=== PATIENT | male | born 1995 | race African-American/Black ===

== ENCOUNTER 2021-11-05 22:07 | Emergency (ER) | payer SELFPAY ==
[~2021-11-05] VITALS: Ht 182.9 cm; Wt 68.0 kg
[2021-11-05 22:35] VITALS: BP 117/69
[2021-11-05] MEDS ORDERED: IBUPROFEN 800MG TABLET PO ONE (23:30)
[2021-11-06] MEDS ORDERED: IBUP-2030 MT (01:39)
== END 2021-11-06 02:05 | disposition home or self-care (01) ==
LOC: ER 22:07
DX: S60.221A Contusion of right hand, initial encounter (principal); W22.8XXA Striking against or struck by other objects, initial encounter; Y93.C2 Activity, hand held interactive electronic device; Y92.018 Other place in single-family (private) house as the place of occurrence of the external cause
CPT/HCPCS: 73130; 99283

== ENCOUNTER 2023-12-30 00:53 | Emergency (ER) | payer SELFPAY ==
[~2023-12-30] VITALS: Ht 180.3 cm; Wt 65.0 kg
[~2023-12-30 00:53] MED LIST: IBUP-2030 MT
[2023-12-30 01:23] VITALS: BP 110/82; PULSE 80; RESP 16; TEMP 97.8; O2SAT 98
[2023-12-30] MEDS ORDERED: OCUFLX RIGHTEYE (03:55)
== END 2023-12-30 04:41 | disposition home or self-care (01) ==
LOC: ER 00:53
DX: H10.89 Other conjunctivitis (principal)
CPT/HCPCS: 99283

== ENCOUNTER 2024-01-16 21:00 | Emergency (ER) | payer SELFPAY ==
[~2024-01-16] VITALS: Ht 180.3 cm; Wt 62.0 kg
[~2024-01-16 21:00] MED LIST changes: +OCUFLX RIGHTEYE
[2024-01-16 21:25] VITALS: BP 123/66; PULSE 97; RESP 18; TEMP 98.4; O2SAT 100
[2024-01-16] MEDS ORDERED: TETRACAINE 0.5% OPHTH DROPS 4ML BOTHEYE ONE (22:45)
[2024-01-16] MEDS ORDERED: FLUORESCEIN SODIUM 1MG/STRIP BOTHEYE ONE (22:45)
[2024-01-17] MEDS ORDERED: FLUORESCEIN SODIUM 1MG/STRIP BOTHEYE NR (01:15)
[2024-01-17] MEDS ORDERED: TETRACAINE 0.5% OPHTH DROPS 4ML BOTHEYE NR (01:15)
[2024-01-17] MEDS ORDERED: OCUFLX LEFTEYE (01:23)
[2024-01-17] MEDS ORDERED: KEPP500 MT (01:23)
[2024-01-17] MEDS ORDERED: LEVETIRACETAM 500MG/5ML CUP PO ONE (01:30)
== END 2024-01-17 02:09 | disposition home or self-care (01) ==
LOC: ER 21:00
DX: H10.9 Unspecified conjunctivitis (principal); G40.909 Epilepsy, unspecified, not intractable, without status epilepticus; Z76.0 Encounter for issue of repeat prescription
CPT/HCPCS: 99283

== ENCOUNTER 2025-02-18 07:47 | Emergency (ER) | payer MEDICAID ==
[~2025-02-18] VITALS: Ht 180.3 cm; Wt 71.0 kg
[~2025-02-18 07:47] MED LIST changes: +KEPP500 MT; +OCUFLX LEFTEYE
[2025-02-18 08:00] VITALS: O2SAT 97
[2025-02-18 08:29] LABS: BASOPHILS % 0.4 % (0.0-2.0); EOSINOPHILS % 0.9 % (0.0-5.0); HEMATOCRIT. 39.4 % (42.0-52.0); HEMOGLOBIN. 12.8 g/dL (14.0-18.0); LYMPHOCYTES % 26.1 % (20.0-50.0); MEAN PLATELET VOLUME 8.1 fl (7.4-10.4); MONOCYTES % 9.5 % (2.0-8.0); NEUTROPHILS % 63.1 % (40.0-76.0); PLATELET 192 x1000/uL (130-400); RED BLOOD CELL COUNT 5.01 mill/uL (4.7-6.1); RED CELL DISTRIBUTION WIDTH 14.9 % (11.6-14.6)
[2025-02-18] MEDS ORDERED: LEVETIRACETAM 0 MG in SODIUM CHLORIDE 0.9% 100 ML IV ONE (08:30)
[2025-02-18] MEDS ORDERED: ACETAMINOPHEN 325MG TABLET PO ONE (08:30)
[2025-02-18 08:42] LABS: CREATININE 1.0 mg/dL (0.6-1.3); UREA NITROGEN BLOOD 11 mg/dL (9-23)
[2025-02-18 08:43] LABS: ETHANOL BLOOD < 10 mg/dL (<10)
[2025-02-18] MEDS: LEVETIRACETAM 1000MG PREMIX 100 ML IV NR (09:01)
[2025-02-18] MEDS: ACETAMINOPHEN 325MG TABLET PO NR (09:01)
[2025-02-18] MEDS ORDERED: KEPP500 PO (10:03)
[2025-02-18 10:54] VITALS: BP 135/90; PULSE 87; RESP 20; TEMP 36.9; O2SAT 97
== END 2025-02-18 10:59 | disposition home or self-care (01) ==
LOC: ER 07:47
DX: G40.909 Epilepsy, unspecified, not intractable, without status epilepticus (principal); Z79.899 Other long term (current) drug therapy; Z88.0 Allergy status to penicillin
CPT/HCPCS: 80048; 80320; 85025; 36415; 70450; 93005; 96365; 99285; J1953; G0480

== ENCOUNTER 2025-03-11 18:42 | Emergency (ER) | payer MEDICAID ==
[~2025-03-11] VITALS: Ht 180.3 cm; Wt 66.0 kg
[~2025-03-11 18:42] MED LIST changes: +KEPP500 PO
[2025-03-11 18:50] VITALS: O2SAT 100
[2025-03-11 19:36] LABS: BASOPHILS % 0.4 % (0.0-2.0); EOSINOPHILS % 1.2 % (0.0-5.0); HEMATOCRIT. 36.2 % (42.0-52.0); HEMOGLOBIN. 11.7 g/dL (14.0-18.0); LYMPHOCYTES % 33.9 % (20.0-50.0); MEAN PLATELET VOLUME 7.5 fl (7.4-10.4); MONOCYTES % 9.8 % (2.0-8.0); NEUTROPHILS % 54.7 % (40.0-76.0); PLATELET 176 x1000/uL (130-400); RED BLOOD CELL COUNT 4.53 mill/uL (4.7-6.1); RED CELL DISTRIBUTION WIDTH 14.9 % (11.6-14.6)
[2025-03-11 19:48] LABS: CREATININE 1.1 mg/dL (0.6-1.3); UREA NITROGEN BLOOD 12 mg/dL (9-23)
[2025-03-11 20:56] LABS: CLARITY URINE CLOUDY (CLEAR); COLOR URINE YELLOW (YELLOW); GLUCOSE URINE NEGATIVE (NEGATIVE); KETONES URINE TRACE (NEGATIVE); LEUKOCYTE ESTERASE URINE 3+ (NEGATIVE); NITRITE URINE NEGATIVE (NEGATIVE); OCCULT BLOOD URINE 1+ (NEGATIVE); PH URINE 5.5 (4.5-8.0); PROTEIN URINE 1+ (NEGATIVE); SPECIFIC GRAVITY URINE 1.032 (1.005-1.030); UROBILINOGEN URINE 1.0 E.U./dL (0.2-1.0)
[2025-03-11 21:06] LABS: BACTERIA URINE 3+; SQUAMOUS EPITHELIAL CELL URINE RARE /lpf (RARE/1+); WBC URINE 15-25 /hpf (0-2)
[2025-03-11] MEDS: DOXYCYCLINE HYCLATE 100MG CAPSULE PO STA (22:32)
[2025-03-11] MEDS: KETOROLAC 30MG/ML VIAL IM ONE (22:32)
[2025-03-11] MEDS: ACETAMINOPHEN 325MG TABLET PO ONE (22:33)
[2025-03-11] MEDS: CEFTRIAXONE SODIUM 500MG VIAL IM STA (22:33)
[2025-03-11] MEDS ORDERED: DOXY100T2 MT (22:36)
[2025-03-11 22:39] VITALS: BP 104/57; PULSE 78; RESP 16; TEMP 37.1; O2SAT 100
[2025-03-11] MEDS ORDERED: KEPP500 MT (22:40)
[2025-03-14 04:09] LABS: CHLAMYDIA TRACHOMATIS NAA Negative (Negative); NEISSERIA GONORRHOEAE NAA Negative (Negative)
== END 2025-03-11 22:53 | disposition home or self-care (01) ==
LOC: ER 18:42
DX: N39.0 Urinary tract infection, site not specified (principal); Z79.899 Other long term (current) drug therapy; Z88.0 Allergy status to penicillin; Z98.890 Other specified postprocedural states
CPT/HCPCS: 87491; 87591; 80048; 81003; 85025; 87086; 87077; 36415; 96372; 99284; J0696; J1885; Z7610